=== PATIENT | male | born 1960 ===

== ENCOUNTER → 2023-04-06 08:54 | Outpatient (CLI) | payer SELFPAY ==
--- NOTE | ~2023-04-06 | MR_ITS ---
MRI of the left knee Clinical history: Pain Technique: Coronal proton density and proton density-weighted images, sagittal proton-density and T2 fat-sat images, and axial proton-density fat-saturated images were acquired. Findings: Anterior and posterior cruciate ligaments are intact. Medial collateral ligament and the la teral collateral ligament complex are intact. Popliteus tendon is intact. There is extensive soft tis candida edema surrounding the proximal MCL. Medial and lateral menisci are intact, without evidence of tear. 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 There is extensive amorphous marrow edema throughout the medial femoral condyle. There is a probable very subtle subchondral insu fficiency fracture of the medial femoral condyle. Articular cartilage in the lateral compartment is w ell preserved. There is mild chondromalacia patella. There is mild to moderate chondromalacia of the femoral trochlea. Extensor mechanism is intact. Small joint effusion present, with small Bailey's cyst. Impression: Probable subtle subchondral insufficiency fracture the medial femoral condyle with extensive surround ing marrow edema. Extensive soft tissue edema about the MCL. This is possibly reactive, versus posttraumatic in nature. Correlate for grade 1 MCL sprain. 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 Additional mild degenerative changes, as abo ve. Small joint effusion with small Bailey's cyst. Reviewed, dictated and finalized at location [facility] Impression: Probable subtle subchondral insufficiency fracture the medial femoral condyle w ith extensive surrounding marrow edema. Extensive soft tissue edema about the MCL. This is possibly reactive, versus po sttraumatic in nature. Correlate for grade 1 MCL sprain. 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 Additional mild degene rative changes, as above. Small joint effusion with small Bailey's cyst.
== END ==
DX: M25.462 Effusion, left knee (principal); M71.22 Synovial cyst of popliteal space [Baker], left knee
CPT/HCPCS: 73721